=== PATIENT | male | born 1940 | race Caucasian/White ===

== ENCOUNTER → 2016-03-04 | Outpatient (REF) | payer MEDICAID, MEDICARE ==
[~2016-03-04] MED LIST: /GLYB5TA OR; /HYDR.5CR TOP; /NITR4TASL SL; ACUV0.45 OS; ALDA25TA2 OR; ASPI1TAB PO; ASPI81CH PO; ASPI81TA83 OR; ATOR1TAB18 PO; CALCI50TA PO; CARV6.25 OR; CARV6.25 PO; CLOP75TA2 PO; DICL500C PO; ELIQ2.5T PO; EUCECRE2 TOP; FLON1SPR; FOLI1TAB OR; FURO40TA2 OR; FURO40TA2 PO; FURO80TA2 OR; GLUC1000 OR; INSUDET SC; INSUH10VL INJ; INSULANT SC; LASI20TA PO; LEVO500T PO; LISI10TA4 OR; LISI10TA4 PO; LOPR50TA OR; LORA10TA2 PO; METO-346 PO; METO25TAB PO; NITR4TASL SL; NOVOLOG100 MG/ML SC; PERC5TAB8 OR; PLAV75TA PO; PRED1SUS OS; PRED20TA PO; PROT1TAB2 PO; SIMV20TA2 OR; TOBR3OPD OS; VIBR100C PO; VITA50003 PO; XOPEAER IN; ZOCO40TA OR; [UNRECOGNIZED DRUG - OTHER] TOP; albuterol inh INH; lantus SC
== END ==
LOC: M LAB REF 11:08 → M SFHCPLAZ 11:08
PROVIDERS: ATTEND Family Medicine
DX: T36.91XA Poisoning by unspecified systemic antibiotic, accidental (unintentional), initial encounter (principal)